=== PATIENT | female | born 2000 | race Two or more races ===

== ENCOUNTER 2022-11-21 17:45 | Emergency (ER) | payer MEDICAID ==
[~2022-11-21] VITALS: Ht 170.2 cm; Wt 100.0 kg
[2022-11-21 18:27] LABS: Basophils # (auto) 0.1 10 ^3/uL (0-0.2); Eosinophils # (auto) 0.2 10 ^3/uL (0-0.8); Eosinophils % (auto) 1.9 % (0.0-7.0); Hematocrit 39.1 % (36.0-46.0); Lymphocytes # (auto) 2.6 10 ^3/uL (0.4-5.4); Lymphocytes % (auto) 27.5 % (10.0-50.0); Mean Corpuscular Hemoglobin 27.3 pg (28.0-32.0); Mean Corpuscular Hgb Conc. 33.2 g/dL (32.0-36.0); Mean Corpuscular Volume 82.2 fL (80.0-100.0); Monocytes # (auto) 0.6 10 ^3/uL (0-1.3); Monocytes % (auto) 6.5 % (0.0-12.0); Neutrophils % (auto) 63.1 % (37.0-80.0); Nucleated Red Blood Cells % 0.1 %; Red Blood Cells 4.76 10^6/uL (4.0-5.20); Red Cell Distribution Width 13.7 % (11.8-14.3); White Blood Cell 9.5 10^3/uL (4.4-10.8)
[2022-11-21 18:42] LABS: Alanine Aminotransferase 29 U/L (7-40); Albumin 4.5 g/dL (3.2-4.8); Alkaline Phosphatase 61 U/L (46-116); Anion Gap 5 (5-15); Aspartate Aminotransferase 13 U/L (13-40); BUN/Creatinine Ratio 12.5 (10.0-20.0); Blood Urea Nitrogen 10 mg/dL (9-23); Calcium 9.4 mg/dL (8.7-10.4); Carbon Dioxide 24 mmol/L (20-30); Chloride 108 mmol/L (98-107); Glucose 89 mg/dL (74-106); INR 1.03 (0.9-1.15); Partial Thromboplastin Time 29.6 SEC (24.5-34.5); Potassium 3.9 mmol/L (3.5-5.1); Prothrombin Time 10.8 sec (9.3-11.8); Sodium 137 mmol/L (136-145)
[2022-11-21 18:43] LABS: Bilirubin, Total 0.4 mg/dL (0.2-1.0)
[2022-11-21] MEDS ORDERED: HYDROcodone-ACET 10/325MG TAB PO ONE (19:30)
[2022-11-21] MEDS ORDERED: ONDANSETRON ODT 4 MG TAB PO ONE (19:30)
[2022-11-21] MEDS ORDERED: NAPR-746 PO (21:30)
[2022-11-21] MEDS ORDERED: MEDR5TAB28 PO (21:30)
[2022-11-21] MEDS ORDERED: ZOFR4T PO (21:30)
[2022-11-21 22:12] VITALS: BP 129/89; PULSE 69; RESP 18; TEMP 98.6; O2SAT 99
[2022-11-22] MEDS ORDERED: IPRATROPIUM BROM 0.5 MG/2.5ML INH SOL ONE (02:32)
[2022-11-22] MEDS ORDERED: ALBUTEROL SULF 2.5 MG/0.5ML(0.5%) NEB SOLN ONE (02:32)
== END 2022-11-21 22:13 | disposition home or self-care (01) ==
LOC: ER 17:45
DX: N93.8 Other specified abnormal uterine and vaginal bleeding (principal); R10.2 Pelvic and perineal pain; Z79.899 Other long term (current) drug therapy; Z79.01 Long term (current) use of anticoagulants
CPT/HCPCS: 36415; 76830; 76856; 80053; 84702; 85025; 85610; 85730; 99284; Q0162